=== PATIENT | female | born 1950 | race Caucasian/White ===

== ENCOUNTER 2018-05-26 02:49 | Emergency (ER) | payer OTHER ==
--- OUTSIDE RECORDS SUMMARY | 2018-05-26 02:51 | XMS REPORT ---
:1950 Author Organization eClinicalWorks Care Team Providers Name Role Phone Vanita Varela Provider Role Unavailable Allergies, Adverse Reactions, Alerts Substance Reaction Event Type Crestor severe myalgias and drawsiness Drug Allergy Problems Problem Type Condition Code Onset Dates Condition Status Assessment Gastroesophageal reflux disease K21.9 Active without esophagitis Assessment Depression with anxiety F41.8 Active Assessment Pure hypercholesterolemia E78.00 Active Problem Depression with anxiety F41.8 Active Problem Pure hypercholesterolemia E78.00 Active Problem Essential hypertension I10 Active Assessment Essential hypertension I10 Active Problem Gastroesophageal reflux disease K21.9 Active without esophagitis Problem Fatigue, unspecified type R53.83 Active Medications Medication Code Code Instructions Start End Status Dosage System Date Date Trintellix [facility] [place] 49467742589 5 MG Orally Active 1 tablet Once a day Nexium [facility] [place] 57930124374 40 MG Orally Active 1 capsule Once a day Multivitamin [facility] [place] [id number] - Orally Active as Adults 50+ directed Vitamin D-3 [facility] [place] [id number] 1000 UNIT Active 1 capsule Orally Once a day Magnesium [facility] [place] 86697022402 65 MG Orally Active 1 tablet Aspartate Once a day with a meal Imitrex [facility] [place] 87303020892 100 MG Orally Active 1 tablet Twice a day as needed Cyanocobalamin [facility] [place] [address]-98 100 MCG Orally Active as directed Nasacort Allergy [facility] [place] 52318423246 55 MCG/ACT Active 1 puff in 24HR Nasally Once a each day nostril Clonazepam [facility] [place] 41992920287 1 MG Orally Active 1 tablet Once a day Vyvanse [facility] [place] 65320429824 30 MG Orally Active 1 capsule Once a day in the morning Biotin [facility] [place] 53291733802 1 MG Orally Active as directed Losartan [facility] [place] 53229009457 100-25 Orally Active take one Potassium-HCTZ Once a day tablet by mouth daily Results No Known Results Summary Purpose eClinicalWorks Submission
[2018-05-26] MEDS ORDERED: KETOROLAC 30 MG/ML INJ ONE (04:18)
[2018-05-26] MEDS ORDERED: MORPHINE 4 MG/ML SYR ONE (04:18)
[2018-05-26] MEDS ORDERED: NA CHLORIDE 0.9% 500 ML ONE (04:19)
[2018-05-26] MEDS ORDERED: ONDANSETRON 4 MG/2 ML VIAL ONE (04:19)
[2018-05-26 04:35] LABS: Absolute Lymphocytes (CBC) 1.5 K/uL (0.7-4.9); Absolute Monocytes 0.6 K/uL (0.1-1.3); Absolute Neutrophil 5.9 K/uL (1.8-8.0); Basophils % 0.5 % (0-1.3); Eosinophils % 2.5 % (0-4.4); Hematocrit 38.1 % (36.0-45.0); Lymphocytes % 18.2 % (15.3-44.8); MPV 7.3 fL (7.6-11.3); Monocytes % 7.7 % (3.3-12.3); RBC Red Blood Cell Count 4.18 M/uL (3.86-4.86)
[2018-05-26 04:50] LABS: Albumin 3.8 g/dL (3.4-5.0); Bilirubin Total 0.2 mg/dL (0.2-1.0); Potassium 4.4 mmol/L (3.5-5.1); Protein, Total 7.4 g/dL (6.4-8.2)
[2018-05-26 06:14] LABS: Urine Blood TRACE (NEG); Urine Glucose NEGATIVE (NEG); Urine Protein NEGATIVE (NEG); Urine Specific Gravity 1.015 (1.005-1.030)
--- NOTE | 2018-05-26 06:53 | ER ---
Nurse's Notes [facility] Name: Hortensia Oneal Age: 68 yrs Sex: Female : 1950 Arrival Date: 05/26/2018 Time: 02:56 Bed 7 Private MD: Catherine Varela Diagnosis: Pain in right lower leg;Pain in right leg;Pain in right hip;Sciatica, right side;Spondylolysis;Spondylolysis, lumbar region;Spondylolisthesis, lumbar region-GRADE 2 L5-S1 Presentation: 05/26 03:07 Presenting complaint: Patient states: States pain to right knee radiating to right hip; lp1 States hx of right knee pain when sleeping wrong in the past but first time to extend to right hip tonight; able to bear weight. Transition of care: patient was not received from another setting of care. Onset of symptoms was May 26, 2018. Risk Assessment: Do you want to hurt yourself or someone else? Patient reports no desire to harm self or others. Initial Sepsis Screen: Does the patient meet any 2 criteria? No. Patient's initial sepsis screen is negative. Does the patient have a suspected source of infection? No. Patient's initial sepsis screen is negative. Care prior to arrival: None. 03:07 Method Of Arrival: Wheelchair lp1 03:07 Acuity: YESICA 4 lp1 Historical: - Allergies: 03:10 No Known Allergies; lp1 - Home Meds: 03:10 Clonazepam Oral [Active]; Wellbutrin Oral [Active]; Lopressor Oral [Active]; Nexium lp1 Oral [Active]; - PMHx: 03:10 Depression; High Cholesterol; Hypertension; subglottial stenosis; lp1 - PSHx: 03:10 Hysterectomy; lp1 - Immunization history:: Adult Immunizations up to date. - Social history:: Smoking status: Patient/guardian denies using tobacco. - Ebola Screening: : No symptoms or risks identified at this time. - Family history:: not pertinent. Screenin:11 Abuse screen: Denies threats or abuse. Denies injuries from another. Nutritional lp1 screening: No deficits noted. Tuberculosis screening: No symptoms or risk factors identified. Fall Risk None identified. Assessment: 03:10 General: Appears in no apparent distress. Behavior is calm, cooperative, appropriate ca1 for age. Pain: Complains of pain in right knee Pain radiates to right hip Pain currently is 8 out of 10 on a pain scale. Aggravated by laying flat on bed. Neuro: Level of Consciousness is awake, alert, obeys commands, Oriented to person, place, time, situation, Appropriate for age. Cardiovascular: Heart tones S1 S2 present Capillary refill < 3 seconds Patient's skin is warm and dry. Pulses are all present. Respiratory: Airway is patent Trachea midline Respiratory effort is even, unlabored, Respiratory pattern is regular, symmetrical, Breath sounds are clear bilaterally. GI: Abdomen is flat, non-distended, Bowel sounds present X 4 quads. Abd is soft and non tender X 4 quads. : No signs and/or symptoms were reported regarding the genitourinary system. EENT: No signs and/or symptoms were reported regarding the EENT system. Derm: Skin is intact, is healthy with good turgor, Skin is pink, warm \T\ dry. Musculoskeletal: Circulation, motion, and sensation intact. Capillary refill < 3 seconds, Range of motion: intact in all extremities. 04:56 Reassessment: Patient appears in no apparent distress at this time. Patient and/or ca1 family updated on plan of care and expected duration. Pain level reassessed. Patient is alert, oriented x 3, equal unlabored respirations, skin warm/dry/pink. came back from CT scan and X-ray, states pain was not relieved by Toradol and aggravated by movements and positions during X-ray procedure. Another pain meds given. 06:01 Reassessment: Patient appears in no apparent distress at this time. Patient and/or ca1 family updated on plan of care and expected duration. Pain level reassessed. Patient is alert, oriented x 3, equal unlabored respirations, skin warm/dry/pink. accompanied patient to restroom. Patient states feeling better. 07:18 Reassessment: Patient appears in no apparent distress at this time. Patient and/or ch family updated on plan of care and expected duration. Pain level reassessed. Patient is alert, oriented x 3, equal unlabored respirations, skin warm/dry/pink. Patient states feeling better. Patient states symptoms have improved. Pain: Complains of pain in right knee Pain radiates to right hip and right quadriceps Pain currently is 2 out of 10 on a pain scale. Musculoskeletal: Circulation, motion, and sensation intact. Capillary refill < 3 seconds, in bilateral fingers. toes. Range of motion: intact in all extremities. 07:23 Reassessment: AWAITING CT LUMBAR RESULTS PRIOR TO DISCHARGE PER DR GUZMAN ORDERS. 07:44 Reassessment: Patient appears in no apparent distress at this time. No changes from previously documented assessment. Patient and/or family updated on plan of care and expected duration. Pain level reassessed. Patient is alert, oriented x 3, equal unlabored respirations, skin warm/dry/pink. Vital Signs: 03:08 BP 151 / 70; Pulse 87; Resp 18; Temp 97.9(O); Pulse Ox 99% on R/A; Weight 68.04 kg; lp1 Height 5 ft. 2 in. (157.48 cm); Pain 8/10; 04:56 BP 146 / 87; Pulse 78; Resp 18; Pulse Ox 98% on R/A; Pain 9/10; ca1 06:01 BP 152 / 74; Pulse 81; Resp 18; Pulse Ox 97% on R/A; ca1 07:18 BP 119 / 68; Pulse 72; Resp 14; Temp 97.9; Pulse Ox 97% on R/A; Pain 2/10; ch 03:08 Body Mass Index 27.44 (68.04 kg, 157.48 cm) lp1 ED Course: 02:56 Patient arrived in ED. es 02:57 Catherine Varela is Private Physician. es 03:01 Marlon Bobo MD is Attending Physician. robinson 03:08 Triage completed. lp1 03:09 Sangeeta Champion, ALEXIS is Primary Nurse. ca1 03:09 Arm band placed on left wrist. lp1 03:10 Patient has correct armband on for positive identification. Placed in gown. Bed in low ca1 position. Call light in reach. Side rails up X 1. Pulse ox on. NIBP on. Warm blanket given. 04:27 Patient moved to radiology via wheelchair. kw 04:28 X-ray completed. Patient tolerated procedure well. kw 04:[address] via wheelchair. kw 04:28 Hip Right 2 View XRAY In Process Unspecified. EDMS 04:28 Knee Right 3 View XRAY In Process Unspecified. EDMS 04:51 CT Lumbar Spine Wo Con In Process Unspecified. EDMS 06:50 Catherine Varela is Referral Physician. robinson 07:00 Inserted saline lock: 22 gauge in right antecubital area, using aseptic technique. ch Inserted prior to my arrival. 07:23 Primary Nurse role handed off by Sangeeta Champion RN 07:23 Debo Schmitt, RN is Primary Nurse. 07:27 Nas Ramachandran MD is Referral Physician. robinson 07:51 IV discontinued, intact, bleeding controlled, No redness/swelling at site. Pressure ch dressing applied. 07:51 No provider procedures requiring assistance completed. ch Administered Medications: 04:17 Drug: NS 0.9% 500 ml Route: IV; Rate: bolus; Site: right antecubital; ca1 06:20 Follow up: Response: No adverse reaction; IV Status: Completed infusion ca1 04:18 Drug: Zofran 4 mg Route: IVP; Site: right antecubital; ca1 05:41 Follow up: Response: No adverse reaction ca1 04:20 Drug: TORadol 30 mg Route: IVP; Site: right antecubital; ca1 05:42 Follow up: Response: No adverse reaction ca1 04:54 Drug: morphine 4 mg Route: IVP; Site: right antecubital; ca1 05:42 Follow up: Response: No adverse reaction ca1 Outcome: 06:53 Discharge ordered by MD. [facility] 07:50 Discharged to home ambulatory, with family. 07:50 Condition: stable 07:50 Discharge instructions given to patient, family, Instructed on discharge instructions, follow up and referral plans. medication usage, Demonstrated understanding of instructions, follow-up care, medications, Prescriptions given X 4. 07:52 Patient left the ED. 15:31 Discharge instructions given to Valium prescription cancelled by RAÚL kahn. pt recently iw filled clonazepam prescription one week ago per pt pharmacy Signatures: Dispatcher [employer] EDDebo Alba, RN Marlon Wyatt ch, MD MD cha Salyer, Edna es Williams, Irene, RN RN iw Xiomara Reynolds Laura, RN RN lp1 Sangeeta Champion RN RN ca1
--- NOTE | 2018-05-26 06:53 | EDPHYS ---
Physician Documentation [facility] Name: Hortensia Oneal Age: 68 yrs Sex: Female : 1950 Arrival Date: 05/26/2018 Time: 02:56 Bed 7 Private MD: Catherine Varela ED Physician Marlon Bobo HPI: 05/26 04:05 This 68 yrs old Female presents to ER via Wheelchair with complaints of Knee robinson Pain. 04:05 The patient presents with pain that is chronic, with no known mechanism of injury. The robinson symptoms are located in the low back. The pain radiates to the right leg. The problem was sustained from unknown cause. Onset: The symptoms/episode began/occurred 3 day(s) ago. Modifying factors: The patient symptoms are alleviated by movement, the patient symptoms are aggravated by sitting. Associated signs and symptoms: Pertinent positives: right hip , knee pain. The patient or guardian reports pain. that occurred at an unknown site. Historical: - Allergies: 03:10 No Known Allergies; lp1 - Home Meds: 03:10 Clonazepam Oral [Active]; Wellbutrin Oral [Active]; Lopressor Oral [Active]; Nexium lp1 Oral [Active]; - PMHx: 03:10 Depression; High Cholesterol; Hypertension; subglottial stenosis; lp1 - PSHx: 03:10 Hysterectomy; lp1 - Immunization history:: Adult Immunizations up to date. - Social history:: Smoking status: Patient/guardian denies using tobacco. - Ebola Screening: : No symptoms or risks identified at this time. - Family history:: not pertinent. ROS: 04:05 Constitutional: Negative for fever, chills, and weight loss, Eyes: Negative for injury, robinson pain, redness, and discharge, ENT: Negative for injury, pain, and discharge, Neck: Negative for injury, pain, and swelling, Cardiovascular: Negative for chest pain, palpitations, and edema, Respiratory: Negative for shortness of breath, cough, wheezing, and pleuritic chest pain, Abdomen/GI: Negative for abdominal pain, nausea, vomiting, diarrhea, and constipation, Back: Negative for injury and pain, : Negative for injury, bleeding, discharge, and swelling, Skin: Negative for injury, rash, and discoloration, Neuro: Negative for headache, weakness, numbness, tingling, and seizure, Psych: Negative for depression, anxiety, suicide ideation, homicidal ideation, and hallucinations, Allergy/Immunology: Negative for hives, rash, and allergies, Endocrine: Negative for neck swelling, polydipsia, polyuria, polyphagia, and marked weight changes, Hematologic/Lymphatic: Negative for swollen nodes, abnormal bleeding, and unusual bruising. 04:05 MS/extremity: Positive for decreased range of motion, pain, tenderness, of the right leg. Exam: 04:05 Constitutional: This is a well developed, well nourished patient who is awake, alert, robinson and in no acute distress. Head/Face: Normocephalic, atraumatic. Eyes: Pupils equal round and reactive to light, extra-ocular motions intact. Lids and lashes normal. Conjunctiva and sclera are non-icteric and not injected. Cornea within normal limits. Periorbital areas with no swelling, redness, or edema. ENT: Nares patent. No nasal discharge, no septal abnormalities noted. Tympanic membranes are normal and external auditory canals are clear. Oropharynx with no redness, swelling, or masses, exudates, or evidence of obstruction, uvula midline. Mucous membranes moist. Neck: Trachea midline, no thyromegaly or masses palpated, and no cervical lymphadenopathy. Supple, full range of motion without nuchal rigidity, or vertebral point tenderness. No Meningismus. Chest/axilla: Normal chest wall appearance and motion. Nontender with no deformity. No lesions are appreciated. Cardiovascular: Regular rate and rhythm with a normal S1 and S2. No gallops, murmurs, or rubs. Normal PMI, no JVD. No pulse deficits. Respiratory: Lungs have equal breath sounds bilaterally, clear to auscultation and percussion. No rales, rhonchi or wheezes noted. No increased work of breathing, no retractions or nasal flaring. Abdomen/GI: Soft, non-tender, with normal bowel sounds. No distension or tympany. No guarding or rebound. No evidence of tenderness throughout. Back: No spinal tenderness. No costovertebral tenderness. Full range of motion. Skin: Warm, dry with normal turgor. Normal color with no rashes, no lesions, and no evidence of cellulitis. MS/ Extremity: Pulses equal, no cyanosis. Neurovascular intact. Full, normal range of motion. Neuro: Awake and alert, GCS 15, oriented to person, place, time, and situation. Cranial nerves II-XII grossly intact. Motor strength 5/5 in all extremities. Sensory grossly intact. Cerebellar exam normal. Normal gait. Psych: Awake, alert, with orientation to person, place and time. Behavior, mood, and affect are within normal limits. 04:05 Musculoskeletal/extremity: DVT Exam: No signs of deep vein thrombosis. no swelling, no tenderness, negative Homans' sign noted on exam, no appreciated bluish discoloration, no erythema, no increased warmth, pain, no trauma, no stasis, no hc state. Vital Signs: 03:08 BP 151 / 70; Pulse 87; Resp 18; Temp 97.9(O); Pulse Ox 99% on R/A; Weight 68.04 kg; lp1 Height 5 ft. 2 in. (157.48 cm); Pain 8/10; 04:56 BP 146 / 87; Pulse 78; Resp 18; Pulse Ox 98% on R/A; Pain 9/10; ca1 06:01 BP 152 / 74; Pulse 81; Resp 18; Pulse Ox 97% on R/A; ca1 07:18 BP 119 / 68; Pulse 72; Resp 14; Temp 97.9; Pulse Ox 97% on R/A; Pain 2/10; ch 03:08 Body Mass Index 27.44 (68.04 kg, 157.48 cm) lp1 MDM: 03:01 Patient medically screened. [facility] 04:08 Data reviewed: vital signs, nurses notes, lab test result(s), radiologic studies, CT robinson scan, plain films. 05/26 04:05 Order name: CBC with Diff; Complete Time: 05:38 [facility] 05/26 04:05 Order name: Comprehensive Metabolic Panel; Complete Time: 05:38 [facility] 05/26 04:05 Order name: CT Lumbar Spine Wo Con [facility] 05/26 04:05 Order name: Hip Right 2 View XRAY [facility] 05/26 04:05 Order name: Knee Right 3 View XRAY [facility] 05/26 05:54 Order name: Urine Dipstick--Ancillary (enter results); Complete Time: 06:49 05/26 05:39 Order name: Urine Dipstick-Ancillary (obtain specimen); Complete Time: 05:54 [facility] Administered Medications: 04:17 Drug: NS 0.9% 500 ml Route: IV; Rate: bolus; Site: right antecubital; ca1 06:20 Follow up: Response: No adverse reaction; IV Status: Completed infusion ca1 04:18 Drug: Zofran 4 mg Route: IVP; Site: right antecubital; ca1 05:41 Follow up: Response: No adverse reaction ca1 04:20 Drug: TORadol 30 mg Route: IVP; Site: right antecubital; ca1 05:42 Follow up: Response: No adverse reaction ca1 04:54 Drug: morphine 4 mg Route: IVP; Site: right antecubital; ca1 05:42 Follow up: Response: No adverse reaction ca1 Disposition: 05/26/18 06:53 Discharged to Home. Impression: Pain in right lower leg, Pain in right leg, Pain in right hip, Sciatica, right side, Spondylolysis, Spondylolysis, lumbar region, Spondylolisthesis, lumbar region - GRADE 2 L5-S1. - Condition is Stable. - Discharge Instructions: Joint Pain, Musculoskeletal Pain, Sciatica, Hip Pain, Radicular Pain. - Prescriptions for Tylenol- Codeine #3 300-30 mg Oral Tablet - take 2 tablet by ORAL route every 6 hours As needed; 30 tablet. Medrol (Rupert) 4 mg Oral Tablets, Dose Pack - take 1 tablet by ORAL route as directed - follow package instructions; 1 packet. Motrin IB 200 mg Oral Tablet - take 2 tablet by ORAL route every 6 hours As needed as needed with food; 30 tablet. Valium 2 mg Oral Tablet - take 1 tablet by ORAL route every 8 hours As needed; 20 tablet. - Medication Reconciliation Form, Thank You Letter, Antibiotic Education, Prescription Opioid Use form. - Follow up: Catherine Varela; When: 2 - 3 days; Reason: Recheck today's complaints, Continuance of care, Re-evaluation by your physician. Follow up: Nas aRmachandran MD; When: 2 - 3 days; Reason: Recheck today's complaints, Continuance of care, Re-evaluation by your physician. - Problem is new. - Symptoms have improved. Signatures: Dispatcher [employer] EDMS Debo Schmitt RN RN ch Anderson, Corey, MD MD cha Pena, Laura, RN RN lp1 Sangeeta Champino RN RN ca1 Corrections: (The following items were deleted from the chart) 07:28 06:53 05/26/2018 06:53 Discharged to Home. Impression: Pain in right lower leg; Pain in robinson right leg; Pain in right hip; Sciatica, right side. Condition is Stable. Discharge Instructions: Joint Pain, Musculoskeletal Pain, Sciatica, Hip Pain, Radicular Pain. Prescriptions for Tylenol-Codeine #3 300-30 mg Oral Tablet - take 2 tablet by ORAL route every 6 hours As needed; 30 tablet, Medrol (Rupert) 4 mg Oral Tablets, Dose Pack - take 1 tablet by ORAL route as directed - follow package instructions; 1 packet, Motrin IB 200 mg Oral Tablet - take 2 tablet by ORAL route every 6 hours As needed as needed with food; 30 tablet. and Forms are Medication Reconciliation Form, Thank You Letter, Antibiotic Education, Prescription Opioid Use. Follow up: Catherine Varela; When: 2 - 3 days; Reason: Recheck today's complaints, Continuance of care, Re-evaluation by your physician. Problem is new. Symptoms have improved. robinson 07:52 07:28 05/26/2018 06:53 Discharged to Home. Impression: Pain in right lower leg; Pain in ch right leg; Pain in right hip; Sciatica, right side; Spondylolysis; Spondylolysis, lumbar region; Spondylolisthesis, lumbar region - GRADE 2 L5-S1. Condition is Stable. Discharge Instructions: Joint Pain, Musculoskeletal Pain, Sciatica, Hip Pain, Radicular Pain. Prescriptions for Tylenol-Codeine #3 300-30 mg Oral Tablet - take 2 tablet by ORAL route every 6 hours As needed; 30 tablet, Medrol (Rupert) 4 mg Oral Tablets, Dose Pack - take 1 tablet by ORAL route as directed - follow package instructions; 1 packet, Motrin IB 200 mg Oral Tablet - take 2 tablet by ORAL route every 6 hours As needed as needed with food; 30 tablet. and Forms are Medication Reconciliation Form, Thank You Letter, Antibiotic Education, Prescription Opioid Use. Follow up: Catherine Varela; When: 2 - 3 days; Reason: Recheck today's complaints, Continuance of care, Re-evaluation by your physician. Follow up: Nas Ramachandran; When: 2 - 3 days; Reason: Recheck today's complaints, Continuance of care, Re-evaluation by your physician. Problem is new. Symptoms have improved. robinson
[2018-05-26 07:59] VITALS: TEMP 97.9
[2018-05-26 08:02] VITALS: O2SAT 97
[2018-05-26 08:04] VITALS: BP 119/68
--- NOTE | 2018-05-26 08:28 | RAD REPORT ---
EXAM DESCRIPTION: CTSpine Lumbar Wo Con05/26/2018 4:51 am CLINICAL HISTORY: Leg radiculopathy COMPARISON: None TECHNIQUE: Computed axial tomography lumbar spine was obtained with coronal and sagittal reconstruct ion. Preliminary report generated by virtual radiologic and review prior to dictation All CT scans are performed using dose optimization technique as appropriate and may include automated exposure control or mA/KV adjustment according to patient size. FINDINGS: Moderate anterior subluxation of L5 on S1. Disc is thinned. Vacuum phenomena is present. D isc bulge. Subchondral sclerosis. Bilateral spondylolysis An acute lumbar fracture is not noted. Mild spondylosis involves remainder lumbar spine. IMPRESSION: Moderate anterior subluxation of L5 on S1 with spondylolysis. Mild spondylosis of the remainder lumbar spine If clinically indicated MRI lumbar spine could be obtained to further evaluate spinal canal
--- NOTE | 2018-05-26 09:21 | RAD REPORT ---
EXAM DESCRIPTION: RAD - Hip Right 2 View - 05/26/2018 4:30 am CLINICAL HISTORY: Right hip pain FINDINGS: No fracture or dislocation is seen. No significant bone or joint abnormality is seen
--- NOTE | 2018-05-26 09:22 | RAD REPORT ---
EXAM DESCRIPTION: RAD - Knee Right 3 View - 05/26/2018 4:32 am CLINICAL HISTORY: Right knee pain FINDINGS: No fracture or dislocation is seen. No significant bone or joint abnormality is seen
== END 2018-05-26 07:52 | disposition home or self-care (01) ==
LOC: ER 02:49
DX: M54.31 Sciatica, right side (principal); M47.896 Other spondylosis, lumbar region; M43.16 Spondylolisthesis, lumbar region; M25.551 Pain in right hip; M79.604 Pain in right leg; I10 Essential (primary) hypertension; E78.00 Pure hypercholesterolemia, unspecified; F32.9 Major depressive disorder, single episode, unspecified
CPT/HCPCS: 36415; 72131; 73502; 73562; 80053; 81003; 85025; 96361; 96374; 96375; 99284; J2405

== ENCOUNTER 2025-01-07 11:49 | Emergency (ER) | payer OTHER ==
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
[2025-01-07 12:38] LABS: Absolute Lymphocytes (CBC) 1.6 K/uL (0.7-4.9); Hematocrit 36.3 % (36.0-45.0); Hemoglobin 12.4 g/dL (12.0-15.0); MCH 30.1 pg (27.0-35.0); MCHC 34.2 g/dL (32.0-36.0); MCV 88.1 fL (80-100); MPV 6.6 fL (7.6-11.3); Nucleated RBC Absolute Count 0.0 (0-0); Nucleated Red Blood Cells % 0.0 % (0-0); RBC Red Blood Cell Count 4.12 M/uL (3.86-4.86); White Blood Count 6.60 thou/uL (4.3-10.9)
[2025-01-07 12:54] LABS: Anion Gap 8.6 mEq/L (5.0-15.0); BUN Blood Urea Nitrogen 13.0 mg/dL (7-18); Glucose Level 97.0 mg/dL (74-106); Potassium 3.6 mEq/L (3.5-5.1)
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
[2025-01-07] MEDS ORDERED: IBUPROFEN 200 MG TAB PO ONE (13:36)
[2025-01-07 19:12] VITALS: BP 140/87; TEMP 98.2; O2SAT 100
== END 2025-01-07 14:07 | disposition home or self-care (01) ==
LOC: ER 11:49
DX: M25.511 Pain in right shoulder (principal); R51.9 Headache, unspecified; V49.49XA Driver injured in collision with other motor vehicles in traffic accident, initial encounter
CPT/HCPCS: 36415; 70450; 72125; 80048; 85025; 86850; 86900; 86901; 99284